=== PATIENT | male | born 1955 | race Caucasian/White ===

== ENCOUNTER 2018-11-27 09:22 | Day surgery (SDC) | payer MEDICARE ==
[2018-11-25 15:50] VITALS: BMI 25.0
--- NOTE | 2018-11-27 08:40 | P.GSHP ---
History of Present Illness H&P Date: 11/27/18 CHIEF COMPLAINT: Colon screen HISTORY OF PRESENT ILLNESS: The patient is a 63-year-old male who presents for colon screen. Lower endoscopy was offered for further evaluation and management. PAST MEDICAL HISTORY: Please see list. PAST SURGICAL HISTORY: Please see list. MEDICATIONS: Please see list. ALLERGIES: Please see list. SOCIAL HISTORY: No illicit drug use FAMILY HISTORY: No reports of Crohn disease or ulcerative colitis. REVIEW OF ORGAN SYSTEMS: CONSTITUTIONAL: No reports of fevers or chills. PHYSICAL EXAM: VITAL SIGNS: Stable GENERAL: Well-developed pleasant in no acute distress. HEENT: No scleral icterus. Extraocular movements grossly intact. Moist buccal mucosa. NECK: Supple without lymphadenopathy. CHEST: Unlabored respirations. Equal bilateral excursions. CARDIOVASCULAR: Regular rate and rhythm. Distal 2+ pulses. ABDOMEN: Soft, nontender, nondistended. MUSCULOSKELETAL: No clubbing, cyanosis, or edema. ASSESSMENT: 1. Colon screen. PLAN: 1. Recommend proceeding with a lower endoscopy Past Medical History Past Medical History: Cancer, COPD, GERD/Reflux, Hyperlipidemia, Hypertension, Osteoarthritis (OA), Prostate Disorder Additional Past Medical History / Comment(s): PANCREATITIS. HYPOGLYCEMIC. CHRONIC BACK PAIN. PT STATES HE WAS EXPOSED TO HEPATITIS C (EX ). occ palpitations, hiatal hernia, prostate cancer History of Any Multi-Drug Resistant Organisms: None Reported Past Surgical History: Cholecystectomy, Hernia Repair, Orthopedic Surgery, Tonsillectomy Additional Past Surgical History / Comment(s): HIATAL HERNIA REPAIR. surgery on left knee, ORIF rt ankle, left hand carpal tunnel, "burned nerve in my neck", left shoulder arthroscopy Past Anesthesia/Blood Transfusion Reactions: No Reported Reaction Smoking Status: Current some day smoker - Past Family History Father Family Medical History: Cancer, Deep Vein Thrombosis (DVT) Additional Family Medical History / Comment(s): lung Mother Family Medical History: Cancer Additional Family Medical History / Comment(s): skin Sister(s) Family Medical History: Cancer Medications and Allergies Home Medications Medication Instructions Recorded Confirmed Type Ranitidine HCl [Zantac] 150 mg PO BID PRN 11/21/13 11/25/18 History HYDROcodone/APAP 10-325MG [[place] 1 each PO Q6H PRN #40 tab 11/25/13 11/25/18 Rx 10] Lansoprazole [Prevacid] 30 mg PO AC-SUPPER 11/25/18 11/25/18 History Lisinopril 20 mg PO DAILY 11/25/18 11/25/18 History Pravastatin Sodium [Pravachol] 40 mg PO HS 11/25/18 11/25/18 History Allergies Allergy/AdvReac Type Severity Reaction Status Date / Time cortisone [Cortisone] Allergy Anaphylaxis Verified 11/25/18 15:32 Iodinated Contrast- Oral and Allergy Anaphylaxis Verified 11/25/18 15:33 IV Dye [Iodinated Contrast Media - IV Dye] venom-honey bee Allergy Anaphylaxis Verified 11/25/18 15:32 [bee venom (honey bee)]
[2018-11-27 10:13] VITALS: TEMP 98.3
[2018-11-27] MEDS: LACTATED RINGERS 1,000 ML IV SCH ×2 (10:14→10:15)
[2018-11-27] MEDS ORDERED: LIDOCAINE 1% INJ 10MG/ML (20 ML MDV) ONE (10:43)
[2018-11-27] MEDS ORDERED: PROPOFOL 10 MG/ML 20 ML VIAL IV ONE (10:43)
[2018-11-27] MEDS ORDERED: PHENYLEPHRINE-0.9% NACL SYG 1 MG/10 ML SYRINGE ONE (10:43)
[2018-11-27] MEDS ORDERED: fentaNYL (PF) 50 MCG/ML 2 ML AMP ONE (10:43)
[2018-11-27] MEDS ORDERED: MIDAZOLAM 2 MG/2 ML VIAL ONE (10:43)
--- NOTE | 2018-11-27 11:20 | P.PCN ---
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 Colonoscopy with hot snare polypectomy Colonoscopy with cold forcep biopsy SURGEON: Mckenna Reid MD. ANESTHESIA: MAC. INDICATIONS: The patient is a 63-year-old male who presents for colonoscopy screening. Last colonoscopy over 5 years ago. Benefits and risks were described and informed consent was obtained. DESCRIPTION OF PROCEDURE: The patient had undergone Gatorade, MiraLAX and Dulcolax prep. He had been brought into the operating room and laid in the left lateral decubitus position. After adequate intravenous sedation, the rectum was examined with 2% lidocaine jelly. The prostatic fossa was unremarkable. No external hemorrhoids were encountered. The rectal tone was within normal limits. No lesions were palpated in the rectal vault. An Olympus colonoscope was advanced until the ileocecal valve and appendiceal orifice were clearly viewed. The prep was fair with visualization of the mucosal folds. The scope was removed with visualization of each mucosal fold. No scattered diverticulosis was encountered. Multiple colonic polyps were found and cold forcep biopsy or snare polypectomy. Inflammation of the rectum was identified with hyperemia without bleeding. Retroflexion of the scope demonstrated no internal hemorrhoids. The colon was desufflated. The patient had tolerated the procedure well. Withdrawal time was over 6 minutes. FINDINGS: Aronchick preparation quality scale 2 (1-5) No internal hemorrhoids No external hemorrhoids No arteriovenous malformations Inflammation of the rectum, proctitis No moderate sigmoid diverticulosis Removal of 2 polyps: - Snare polypectomy at ileocecal valve 5 mm tubulovillous adenoma polyp. -Cold forceps biopsy of 4 mm flat villous adenoma polyp, and cecum RECOMMENDATIONS: Repeat colonoscopy 5 years, 2023 Plan - Discharge Summary Discharge Rx Participant: No New Discharge Prescriptions: New Ciprofloxacin HCl [Cipro] 500 mg PO Q12HR #20 tablet No Action Ranitidine HCl [Zantac] 150 mg PO BID PRN PRN Reason: Heartburn HYDROcodone/APAP 10-325MG [[place] 10] 1 each PO Q6H PRN #40 tab PRN Reason: Pain Lisinopril 20 mg PO DAILY Lansoprazole [Prevacid] 30 mg PO AC-SUPPER Pravastatin Sodium [Pravachol] 40 mg PO HS Discharge Medication List Ranitidine HCl [Zantac] 150 mg PO BID PRN 11/21/13 [History] HYDROcodone/APAP 10-325MG [[place] 10] 1 each PO Q6H PRN #40 tab 11/25/13 [Rx] Lansoprazole [Prevacid] 30 mg PO AC-SUPPER 11/25/18 [History] Lisinopril 20 mg PO DAILY 11/25/18 [History] Pravastatin Sodium [Pravachol] 40 mg PO HS 11/25/18 [History] Ciprofloxacin HCl [Cipro] 500 mg PO Q12HR #20 tablet 11/27/18 [Rx] Follow up Appointment(s)/Referral(s): Mckenna Reid MD [STAFF PHYSICIAN] - 12/10/18 Patient Instructions/Handouts: Microscopic Colitis (DC), Colorectal Polyps (DC) Activity/Diet/Wound Care/Special Instructions: Repeat colonoscopy 5 years, 2023 Discharge Disposition: HOME SELF-CARE
[2018-11-27 11:22] VITALS: RESP 16
[2018-11-27 11:39] VITALS: BP 116/61; PULSE 91
--- NOTE | 2018-12-03 14:58 | CDI ---
Date: 12.03.18 CDS/First Leveler Name: Lidia Eldridge Phone: If any questions, call [facility] [employer] at [phone] Patient Name: Jimi Jerry Admit Date: 11.27.18 Discharge Date: 11.27.18 ATTENTION: The [facility] Coding Staff appreciate your assistance in clarifying documentation. Please respond to the clarification below the line at the bottom and electronically sign. The [facility] Coding staff will review the response and follow-up if needed. Please note: Queries are made part of the Legal Health Record. If you have any questions, please contact the [employer]. Dear , Please provide clarification regarding the two polyps that were removed. Per the OP report two polyps were removed, one by snare at the ileocecal valve and the other by cold forceps at the cecum. The Path report only mentions the ileocecal valve polyp. The path report does not mention the polyp that was removed from the cecum. Thank you for your kind consideration. Gross Description Specimen is labeled "Jimi Jerry, ileocecal valve polyp" and consists of 2 bits of pantoja tissue each measuring 0.1 cm in greatest dimension. Entirely submitted. 1C2NS (VH) See above per pathologist! The specimen was inappropriately labeled as under only 1 specimen as 2 specimens were retrieved but labelled under one description of "ileocecal valve" KM 12/04/18 12:23 MTDD
== END 2018-11-27 11:55 | disposition home or self-care (01) ==
LOC: ORWHC2ENDO 09:22
PROVIDERS: ATTEND Surgery Plastic and Reconstructive Surgery
DX: Z12.11 Encounter for screening for malignant neoplasm of colon (principal); K63.5 Polyp of colon; D12.0 Benign neoplasm of cecum; K62.89 Other specified diseases of anus and rectum; Z85.46 Personal history of malignant neoplasm of prostate; J44.9 Chronic obstructive pulmonary disease, unspecified; K21.9 Gastro-esophageal reflux disease without esophagitis; E78.5 Hyperlipidemia, unspecified; I10 Essential (primary) hypertension; M19.90 Unspecified osteoarthritis, unspecified site; N42.9 Disorder of prostate, unspecified; K00.0 Anodontia; G89.29 Other chronic pain; M54.89 Other dorsalgia; F17.200 Nicotine dependence, unspecified, uncomplicated; Z90.49 Acquired absence of other specified parts of digestive tract; Z98.890 Other specified postprocedural states; Z87.81 Personal history of (healed) traumatic fracture; Z79.899 Other long term (current) drug therapy; Z88.8 Allergy status to other drugs, medicaments and biological substances; Z91.041 Radiographic dye allergy status; Z91.030 Bee allergy status; Z86.010 Personal history of colon polyps; Z87.19 Personal history of other diseases of the digestive system; Z84.89 Family history of other specified conditions; Z80.8 Family history of malignant neoplasm of other organs or systems; Z79.891 Long term (current) use of opiate analgesic
CPT/HCPCS: 88305; 45380; 45385; J2250; J2001; J3010; J2370; J2704